=== PATIENT | female | born 1955 | race Two or more races ===

== ENCOUNTER 2020-10-24 10:08 | Outpatient (CLI) | payer BC | END 2020-10-24 23:59 | disposition home or self-care (01) | LOC: CT 10:08 | DX: I25.10 Atherosclerotic heart disease of native coronary artery without angina pectoris (principal); I70.0 Atherosclerosis of aorta; J98.4 Other disorders of lung; M47.814 Spondylosis without myelopathy or radiculopathy, thoracic region; M19.012 Primary osteoarthritis, left shoulder; M19.011 Primary osteoarthritis, right shoulder; K76.0 Fatty (change of) liver, not elsewhere classified; D73.89 Other diseases of spleen; Z85.118 Personal history of other malignant neoplasm of bronchus and lung | CPT/HCPCS: 71250-TC ==

== ENCOUNTER 2021-03-14 10:52 | Outpatient (CLI) | payer BC ==
[2021-03-14] MEDS ORDERED: IOHEXOL-300 100 ML VIAL IV ONE (11:02)
[2021-03-14] MEDS ORDERED: CT SWABBABLE VALVE TRANS SET 1 EA INFUS.SET MC ONE (11:02)
== END 2021-03-14 23:59 | disposition home or self-care (01) ==
LOC: CT 10:52
PROVIDERS: ATTEND Internal Medicine Hematology & Oncology
DX: C34.90 Malignant neoplasm of unspecified part of unspecified bronchus or lung (principal); I25.10 Atherosclerotic heart disease of native coronary artery without angina pectoris; J98.11 Atelectasis; J98.4 Other disorders of lung; I70.0 Atherosclerosis of aorta; K76.0 Fatty (change of) liver, not elsewhere classified; M47.814 Spondylosis without myelopathy or radiculopathy, thoracic region
CPT/HCPCS: 71260; 74177; Q9967